=== PATIENT | male | born 1935 | race Caucasian/White ===

== ENCOUNTER 2017-02-13 10:06 | Day surgery (SDC) | payer OTHER, BC ==
[2017-02-09 13:33] LABS: CALCIUM 9.3 mg/dL (8.5-10.1); CREATININE 1.3 mg/dL (0.7-1.3)
[2017-02-09 13:39] LABS: INR 1.1; PROTIME 11.1 Seconds (9.3-11.4)
[~2017-02-13] VITALS: Ht 180.3 cm; Wt 136.1 kg
--- NOTE | ~2017-02-13 | O ---
[facility] [place] [address] OPERATIVE REPORT Name: GIANFRANCO MATHIS Room #: 150-4 [facility] M.R.#: [id number] Admission: 02/13/17 Attend Phys: Liam De La Cruz MD Discharge: Date of : 35 Report #: [id number] THIS REPORT FOR: //name// CC: Rey De La Cruz DATE OF SERVICE: 02/13/2017 PREOPERATIVE DIAGNOSIS: Left elbow triceps tendon rupture. POSTOPERATIVE DIAGNOSIS: Left elbow triceps tendon rupture. PROCEDURE: Left elbow triceps repair. SURGEON: Liam De La Cruz MD HOUSEKEEPING MANAGER: Mikey Scanlon, nurse practitioner. INDICATIONS FOR HOUSEKEEPING MANAGER: During the course of operation, extensive manipulation, retraction and limb positioning was required. This was afforded to me by my aquatics assistant department head. ANESTHETIC: General. INDICATIONS: See hospital H and P. DESCRIPTION OF PROCEDURE: After adequate general anesthesia had been obtained, the patient was placed in the lateral decubitus position with left arm up. Left upper extremity was prepped and draped in the usual meticulous sterile fashion. The limb was gravity exsanguinated and tourniquet inflated to 250 torr. A longitudinal incision was made over the olecranon. SubQ divided sharply. The triceps tendon was identified. The unhealthy portion of the tendon was debrided. The rongeur was used to freshen the bone surface to a good bleeding bone surface on the olecranon. We then placed 2 Haydee type sutures using #2 Fiberwire stitch to grasps the triceps tendon. Three drill holes were then placed and the sutures were passed through the drill holes. The elbow was extended and the triceps was then reapproximated by tying the sutures bone bridge. This was further reinforced interrupted [id number] #1 Vicryl sutures. The wound was irrigated copiously. We took the elbow through range of motion and there was no separation of the tendon with flexion of the elbow. SubQ was closed with 2-0 Monocryl, skin closed with elian. Sterile [facility] [address] [place] [address] OPERATIVE REPORT Name: GIANFRANCO MATHIS Room #: 150-4 [facility] M.R.#: [id number] Admission: 02/13/17 Attend Phys: Liam De La Cruz MD Discharge: Date of : 35 Report #: [id number] compressive dressing was applied. Long-arm split applied. Tourniquet was deflated once the sterile compressive dressing was applied. By: [id number] Liam De La Cruz MD /nt
[~2017-02-13 10:06] MED LIST: CENTRUM SILVER1 EAC2 PO; CHLORTHALIDONE25 MG PO; CLARITIN10 MG PO; COZAAR 50 MG TA50 M2 PO; ELIQUIS5 MG PO; FISH OIL 1,001000 M2 PO; HYDROCODONE-AP1 EAC6 PO; LASIX 20 MG TAB20 MG PO; LO-DOSE ASPIRIN81 M1 PO; LUMIGAN2.5 M1 OP; PREDNISONE 5 MG5 M1 PO; PRILOSEC 20 MG20 MG PO; VITAMIN D2000 UNIT PO; ZETIA10 MG PO; ZOCOR20 MG PO
== END 2017-02-13 15:20 | disposition home or self-care (01) ==
LOC: OR 10:06 → TBA 10:07 → OR 10:22
PROVIDERS: Orthopaedic Surgery
DX: S46.312A Strain of muscle, fascia and tendon of triceps, left arm, initial encounter (principal); I10 Essential (primary) hypertension; I48.91 Unspecified atrial fibrillation; J44.9 Chronic obstructive pulmonary disease, unspecified; K21.9 Gastro-esophageal reflux disease without esophagitis; E78.00 Pure hypercholesterolemia, unspecified; Z87.891 Personal history of nicotine dependence; Z85.46 Personal history of malignant neoplasm of prostate; X58.XXXA Exposure to other specified factors, initial encounter; Y93.89 Activity, other specified; Y92.89 Other specified places as the place of occurrence of the external cause; Y99.8 Other external cause status
CPT/HCPCS: 50010; 50101; 50386; 51412; 54006; 56521; 56525; 56526; 56530; 57091; 62110; 62900; 64042; 70005